=== PATIENT | male | born 1985 | race African-American/Black ===

== ENCOUNTER 2023-01-22 20:14 | Emergency (ER) | payer MEDICAID ==
[~2023-01-22] VITALS: Ht 170.2 cm; Wt 73.0 kg
[2023-01-22 20:16] VITALS: BP 121/69
[2023-01-22] MEDS ORDERED: CEFTRIAXONE SODIUM 500 MG/VIAL IM ONE (23:15)
[2023-01-22] MEDS ORDERED: DOXY100C5 MT (23:18)
[2023-01-25 09:08] LABS: NEISSERIA GONORRHOEAE NAA Negative (Negative)
== END 2023-01-23 00:32 | disposition home or self-care (01) ==
LOC: ER 20:14
DX: K62.89 Other specified diseases of anus and rectum (principal)
CPT/HCPCS: 86592; 86593; 86780; 87491; 87591; 96372; 99283; J0696